=== PATIENT | female | born 1990 | race Caucasian/White ===

== ENCOUNTER 2018-06-24 03:39 | Emergency (ER) | payer OTHER ==
[2018-06-24] MEDS: DIPHTH/TET/ACEL PERTUSS (ADULT) 0.5 ML VIAL IM* (04:29)
[2018-06-24] MEDS: TETRACAINE 0.5% 4 ML OPH BOTH EYES (04:30)
[2018-06-24] MEDS: FLUORESCEIN STRIP BOTH EYES (04:30)
[2018-06-24] MEDS: LIDOCAINE 1% (MPF) 5 ML VIAL INFIL (04:30)
[2018-06-24] MEDS: BACITRACIN 0.9 GM OINT TOP (08:43)
== END 2018-06-24 08:55 | disposition home or self-care (01) ==
LOC: FTE 03:39
DX: S01.111A Laceration without foreign body of right eyelid and periocular area, initial encounter (principal); S06.0X0A Concussion without loss of consciousness, initial encounter; S09.90XA Unspecified injury of head, initial encounter; S09.93XA Unspecified injury of face, initial encounter; Y04.8XXA Assault by other bodily force, initial encounter; Z23 Encounter for immunization
CPT/HCPCS: 12011; 70450; 70486; 81025; 90471; 90715; 99284-25

== ENCOUNTER 2018-06-29 13:49 | Emergency (ER) | payer OTHER | END 2018-06-29 15:38 | disposition home or self-care (01) | LOC: FTE 15:38 | DX: Z48.02 Encounter for removal of sutures (principal) | CPT/HCPCS: 99282 ==